=== PATIENT | male | born 1940 | race Caucasian/White ===

== ENCOUNTER 2018-10-12 18:39 | Inpatient (IN) | payer OTHER ==
[2018-10-12 19:46] LABS: WHITE BLOOD COUNT 32.4 10^3/ul (4.8-10.8)
[2018-10-12 19:46] LABS: ABNORMAL IP MESSAGE 1; HEMATOCRIT 33.1 % (42.0-52.0); MEAN CORPUSCULAR HEMOGLOBIN 25.6 pg (29.0-33.0); MEAN CORPUSCULAR HGB CONC 30.2 g/dl (32.0-37.0); MEAN CORPUSCULAR VOLUME 84.7 fl (82.0-101.0); MEAN PLATELET VOLUME 10.6 fl (7.4-10.4); PLATELET COUNT 563 10^3/UL (140-415); POSITIVE DIFF @See below; RED BLOOD COUNT 3.91 10^6/ul (4.70-6.10); RED CELL DISTRIBUTION WIDTH 16.1 % (11.5-14.5)
[2018-10-12 19:51] LABS: ADD MAN DIFF? YES
[2018-10-12 19:54] LABS: ALANINE AMINOTRANSFERASE 22 IU/L (13-69); ALBUMIN 3.2 g/dl (3.3-4.9); ALKALINE PHOSPHATASE 64 IU/L (42-121); ANION GAP 8 (5-13); ASPARTATE AMINO TRANSFERASE 26 IU/L (15-46); BILIRUBIN,INDIRECT 0.2 mg/dl (0-1.1); BILIRUBIN,TOTAL 0.2 mg/dl (0.2-1.3); BLOOD UREA NITROGEN 28 mg/dl (7-20); CALCIUM 8.8 mg/dl (8.4-10.2); CARBON DIOXIDE 21 mmol/L (21-31); CHLORIDE 107 mmol/L (97-110); CREATININE 1.79 mg/dl (0.61-1.24); GLUCOSE 114 mg/dl (70-220); POTASSIUM 3.8 mmol/L (3.5-5.1); SODIUM 136 mmol/L (135-144); TOTAL PROTEIN 7.2 g/dl (6.1-8.1)
[2018-10-12 20:07] LABS: B-TYPE NATRIURETIC PEPTIDE 2050 PG/ML (0-450); TROPONIN-I < 0.012 ng/ml (0.000-0.120)
[2018-10-12 20:40] LABS: ANISOCYTOSIS 1+ (0-0); BAND NEUTROPHILS #M 3.5 10^3/ul (0.0-0.6); BAND NEUTROPHILS % (M) 11 % (0-4); BURR CELLS 1+ (0-0); EOSINOPHILS % (M) 19 % (0-7); LYMPHOCYTES #M 5.5 10^3/ul (0.8-2.9); LYMPHOCYTES % (M) 17 % (15-51); MICROCYTOSIS 1+ (0-0); MONOCYTE #M 1.9 10^3/ul (0.3-0.9); MONOCYTES % (M) 6 % (0-11); PLATELET ESTIMATE NORMAL; POIKILOCYTOSIS 1+ (0-0); POLYCHROMASIA 2+ (0-0); SEG NEUT #M 16.4 10^3/ul (1.6-7.5); SEGMENTED NEUTROPHILS (M) % 47 % (39-77); SMUDGE%M 4 % (0-0)
[2018-10-12 21:34] LABS: LACTIC ACID 1.1 mmol/L (0.5-2.0)
[2018-10-12] MEDS: SOD CHLORIDE 0.9% 100 ML (22:11)
[2018-10-12] MEDS: IOHEXOL 100 ML (22:11)
[2018-10-12] MEDS: ENOXAPARIN 80 MG/0.8 ML SYG SC (22:42)
[2018-10-12 23:13] LABS: AADO2 Arterial 280.8 mmHg (7.0-24.0); Allen Test ACCEPTAB; Arterial Base Excess -5.1 mmol/L (-3.0-3); Arterial Blood Gas Oxygen Sat 97.9 mmHG (95.0-100.0); Arterial COHb 0.3 % (0.0-3.0); Arterial Fraction of Oxyhgb 97.1 % (93.0-99.0); Arterial HCO3 19.8 mmol/L (22.0-26.0); Arterial MetHb 0.5 % (0.0-1.5); Arterial pCO2 36.3 mmhg (35-45); Blood Gas IEPAP 13/5; MODE MASK - BIPAP; Site Left Radial
[2018-10-12] MEDS ORDERED: ONDANSETRON 4 MG INJ IV (23:30)
[2018-10-12] MEDS ORDERED: ACETAMINOPHEN 325 MG TAB PO (23:30)
[2018-10-13 02:31] LABS: LACTIC ACID 1.1 mmol/L (0.5-2.0)
[2018-10-13] MEDS ORDERED: PENDING SANTYL ORDER FOR WOUND CARE XX (07:30)
[2018-10-13] MEDS: PIPER-TAZO 2.25 GM (PMX) 50 ML IVPB ×3 (10:18→22:09)
[2018-10-13] MEDS: APIXABAN 5 MG TABLET PO ×2 (10:51→22:09)
[2018-10-13] MEDS ORDERED: NACL 0.9% 3 ML SYG IV (11:30)
[2018-10-13] MEDS: FUROSEMIDE 20 MG TAB PO ×2 (11:45→17:42)
[2018-10-13] MEDS: ALBUTEROL/IPRATROPIUM (NEB) 3 ML AMP HHN ×3 (12:43→21:02)
[2018-10-13] MEDS: HYDROCODONE/APAP (5/325) TAB PO (17:47)
[2018-10-14] MEDS: ALBUTEROL/IPRATROPIUM (NEB) 3 ML AMP HHN ×6 (01:05→20:27)
[2018-10-14] MEDS: HYDROCODONE/APAP (5/325) TAB PO ×2 (05:15→16:30)
[2018-10-14] MEDS: PIPER-TAZO 2.25 GM (PMX) 50 ML IVPB ×3 (06:22→22:31)
[2018-10-14] MEDS: FUROSEMIDE 20 MG TAB PO ×2 (06:24→17:49)
[2018-10-14 06:38] LABS: WHITE BLOOD COUNT 30.3 10^3/ul (4.8-10.8)
[2018-10-14 06:38] LABS: ABNORMAL IP MESSAGE 1; HEMATOCRIT 32.6 % (42.0-52.0); HEMOGLOBIN 9.8 g/dl (14.0-18.0); MEAN CORPUSCULAR HEMOGLOBIN 25.6 pg (29.0-33.0); MEAN CORPUSCULAR HGB CONC 30.1 g/dl (32.0-37.0); MEAN CORPUSCULAR VOLUME 85.1 fl (82.0-101.0); MEAN PLATELET VOLUME 10.7 fl (7.4-10.4); PLATELET COUNT 560 10^3/UL (140-415); POSITIVE DIFF @See below; RED BLOOD COUNT 3.83 10^6/ul (4.70-6.10); RED CELL DISTRIBUTION WIDTH 16.3 % (11.5-14.5)
[2018-10-14 06:46] LABS: ADD MAN DIFF? YES
[2018-10-14 07:11] LABS: HEMOGLOBIN A1C 5.9 % (0-5.9)
[2018-10-14 07:23] LABS: ANION GAP 7 (5-13); BLOOD UREA NITROGEN 28 mg/dl (7-20); CALCIUM 9.1 mg/dl (8.4-10.2); CARBON DIOXIDE 25 mmol/L (21-31); CHLORIDE 109 mmol/L (97-110); CREATININE 1.55 mg/dl (0.61-1.24); GLUCOSE 99 mg/dl (70-220); POTASSIUM 3.8 mmol/L (3.5-5.1); SODIUM 141 mmol/L (135-144)
[2018-10-14 07:59] LABS: ANISOCYTOSIS 1+ (0-0); BAND NEUTROPHILS #M 7.2 10^3/ul (0.0-0.6); BAND NEUTROPHILS % (M) 24 % (0-4); BASOPHIL #M 0.3 10^3/ul (0.0-0.0); BASOPHILS % (M) 1 % (0-2); BURR CELLS 2+ (0-0); EOSINOPHILS % (M) 11 % (0-7); GIANT THROMBO% (M) 2 % (0-0); LYMPHOCYTES #M 2.1 10^3/ul (0.8-2.9); LYMPHOCYTES % (M) 7 % (15-51); MICROCYTOSIS 1+ (0-0); MONOCYTE #M 1.8 10^3/ul (0.3-0.9); MONOCYTES % (M) 6 % (0-11); OVALOCYTES 1+ (0-0); PLATELET ESTIMATE INCREASED; POIKILOCYTOSIS 1+ (0-0); POLYCHROMASIA 3+ (0-0); REACTIVE LYMPHOCYTES #M 1.5 10^3/ul (0.0-0.0); REACTIVE LYMPHOCYTES% (M) 5 % (0-0); SEG NEUT #M 16.1 10^3/ul (1.6-7.5); SEGMENTED NEUTROPHILS (M) % 46 % (39-77); SMUDGE%M 12 % (0-0); TARGET CELLS 1+ (0-0); TOXIC GRANULATION 1+ (0-0)
[2018-10-14] MEDS: APIXABAN 5 MG TABLET PO ×2 (09:30→22:31)
[2018-10-14 11:15] LABS: AADO2 Arterial 279.3 mmHg (7.0-24.0); Allen Test ACCEPTAB; Arterial Base Excess -1.6 mmol/L (-3.0-3); Arterial Blood Gas Oxygen Sat 94.6 mmHG (95.0-100.0); Arterial COHb 0.3 % (0.0-3.0); Arterial Fraction of Oxyhgb 93.9 % (93.0-99.0); Arterial HCO3 22.8 mmol/L (22.0-26.0); Arterial MetHb 0.4 % (0.0-1.5); Arterial pCO2 37.4 mmhg (35-45); Blood Gas IEPAP 13/5; Blood Gas PS 8; MODE MASK - BIPAP; Site Left Radial
[2018-10-15] MEDS: ALBUTEROL/IPRATROPIUM (NEB) 3 ML AMP HHN ×6 (01:14→21:15)
[2018-10-15] MEDS: PIPER-TAZO 2.25 GM (PMX) 50 ML IVPB ×3 (05:53→21:16)
[2018-10-15] MEDS: FUROSEMIDE 20 MG TAB PO ×2 (05:54→17:13)
[2018-10-15] MEDS: APIXABAN 5 MG TABLET PO ×2 (08:17→21:15)
[2018-10-15] MEDS: HYDROCODONE/APAP (5/325) TAB PO (14:01)
[2018-10-16] MEDS: ALBUTEROL/IPRATROPIUM (NEB) 3 ML AMP HHN ×6 (01:19→21:00)
[2018-10-16] MEDS: HYDROCODONE/APAP (5/325) TAB PO ×2 (04:43→18:35)
[2018-10-16] MEDS: FUROSEMIDE 20 MG TAB PO ×2 (06:22→18:07)
[2018-10-16] MEDS: PIPER-TAZO 2.25 GM (PMX) 50 ML IVPB ×3 (06:23→21:28)
[2018-10-16] MEDS: APIXABAN 5 MG TABLET PO ×2 (08:31→21:28)
[2018-10-16 12:15] LABS: ABNORMAL IP MESSAGE 1; HEMATOCRIT 35.3 % (42.0-52.0); HEMOGLOBIN 10.7 g/dl (14.0-18.0); MEAN CORPUSCULAR HEMOGLOBIN 25.2 pg (29.0-33.0); MEAN CORPUSCULAR HGB CONC 30.3 g/dl (32.0-37.0); MEAN CORPUSCULAR VOLUME 83.1 fl (82.0-101.0); MEAN PLATELET VOLUME 10.1 fl (7.4-10.4); PLATELET COUNT 627 10^3/UL (140-415); POSITIVE DIFF @See below; RED BLOOD COUNT 4.25 10^6/ul (4.70-6.10); RED CELL DISTRIBUTION WIDTH 16.2 % (11.5-14.5)
[2018-10-16 12:15] LABS: WHITE BLOOD COUNT 31.7 10^3/ul (4.8-10.8)
[2018-10-16 12:18] LABS: ADD MAN DIFF? YES
[2018-10-16 12:34] LABS: ALANINE AMINOTRANSFERASE 16 IU/L (13-69); ALBUMIN/GLOBULIN RATIO 0.66; ALKALINE PHOSPHATASE 63 IU/L (42-121); ANION GAP 8 (5-13); ASPARTATE AMINO TRANSFERASE 20 IU/L (15-46); BILIRUBIN,INDIRECT 0.4 mg/dl (0-1.1); BILIRUBIN,TOTAL 0.4 mg/dl (0.2-1.3); BLOOD UREA NITROGEN 31 mg/dl (7-20); CALCIUM 9.2 mg/dl (8.4-10.2); CARBON DIOXIDE 30 mmol/L (21-31); CHLORIDE 102 mmol/L (97-110); GLUCOSE 117 mg/dl (70-220); PHOSPHORUS 4.2 mg/dl (2.5-4.9); POTASSIUM 3.9 mmol/L (3.5-5.1); SODIUM 140 mmol/L (135-144); TOTAL PROTEIN 7.5 g/dl (6.1-8.1)
[2018-10-16 13:31] LABS: ANISOCYTOSIS 1+ (0-0); BAND NEUTROPHILS #M 4.4 10^3/ul (0.0-0.6); BAND NEUTROPHILS % (M) 14 % (0-4); BASOPHIL #M 0.6 10^3/ul (0.0-0.0); BASOPHILS % (M) 2 % (0-2); EOSINOPHILS % (M) 14 % (0-7); GIANT THROMBO% (M) 1 % (0-0); LYMPHOCYTES #M 2.8 10^3/ul (0.8-2.9); LYMPHOCYTES % (M) 9 % (15-51); MONOCYTE #M 1.9 10^3/ul (0.3-0.9); MONOCYTES % (M) 6 % (0-11); PLATELET ESTIMATE INCREASED; SEG NEUT #M 18.8 10^3/ul (1.6-7.5); SEGMENTED NEUTROPHILS (M) % 55 % (39-77)
[2018-10-16] MEDS: METOPROLOL 5 MG INJ IV (23:39)
[2018-10-17] MEDS: ALBUTEROL/IPRATROPIUM (NEB) 3 ML AMP HHN ×6 (01:05→20:45)
[2018-10-17] MEDS: HYDROCODONE/APAP (5/325) TAB PO ×3 (01:19→20:47)
[2018-10-17] MEDS: FUROSEMIDE 20 MG TAB PO ×2 (07:00→17:47)
[2018-10-17] MEDS: PIPER-TAZO 2.25 GM (PMX) 50 ML IVPB ×3 (07:01→21:48)
[2018-10-17] MEDS: APIXABAN 5 MG TABLET PO ×2 (10:15→20:47)
[2018-10-17] MEDS ORDERED: METOPROLOL 5 MG INJ IV (23:30)
[2018-10-17] MEDS: SOD CHLORIDE 0.9% 500 ML IV (23:40)
[2018-10-18] MEDS: ALBUTEROL/IPRATROPIUM (NEB) 3 ML AMP HHN ×6 (01:24→21:00)
[2018-10-18] MEDS: FUROSEMIDE 20 MG TAB PO ×2 (06:50→18:09)
[2018-10-18] MEDS: PIPER-TAZO 2.25 GM (PMX) 50 ML IVPB ×3 (06:50→21:23)
[2018-10-18] MEDS: HYDROCODONE/APAP (5/325) TAB PO ×2 (09:03→23:25)
[2018-10-18] MEDS: APIXABAN 5 MG TABLET PO ×2 (09:03→21:25)
[2018-10-19] MEDS: ALBUTEROL/IPRATROPIUM (NEB) 3 ML AMP HHN ×6 (01:00→19:55)
[2018-10-19] MEDS: FUROSEMIDE 20 MG TAB PO ×2 (05:45→17:55)
[2018-10-19] MEDS: PIPER-TAZO 2.25 GM (PMX) 50 ML IVPB ×3 (05:50→21:58)
[2018-10-19] MEDS: APIXABAN 5 MG TABLET PO ×2 (07:50→21:58)
[2018-10-20] MEDS: ALBUTEROL/IPRATROPIUM (NEB) 3 ML AMP HHN ×4 (00:44→12:00)
[2018-10-20] MEDS: PIPER-TAZO 2.25 GM (PMX) 50 ML IVPB (05:36)
[2018-10-20] MEDS: FUROSEMIDE 20 MG TAB PO (05:50)
[2018-10-20] MEDS: APIXABAN 5 MG TABLET PO (08:43)
== END 2018-10-20 13:15 | disposition hospice, inpatient (51) | DRG 175 ==
LOC: TEL 23:03 → E/R 18:39
DX: I26.99 Other pulmonary embolism without acute cor pulmonale (principal); J18.9 Pneumonia, unspecified organism; J96.20 Acute and chronic respiratory failure, unspecified whether with hypoxia or hypercapnia; C78.00 Secondary malignant neoplasm of unspecified lung; C64.9 Malignant neoplasm of unspecified kidney, except renal pelvis; I12.9 Hypertensive chronic kidney disease with stage 1 through stage 4 chronic kidney disease, or unspecified chronic kidney disease; N18.3 Chronic kidney disease, stage 3 (moderate); Z66 Do not resuscitate
CPT/HCPCS: 36600; 71045; 71275; 80048; 80053; 82803; 83036; 83605; 83735; 83880; 84100; 84484; 85025; 87040-91; 93005; 94640; 94660; 94664; 96372; 99285-25